=== PATIENT | female | born 1965 | race Caucasian/White ===

== ENCOUNTER 2021-05-30 09:56 | Emergency (ER) | payer SELFPAY ==
[2021-05-30 09:59] VITALS: BP 121/79; PULSE 57; RESP 14; TEMP 36.3; O2SAT 94; BMI 37.4
--- NOTE | 2021-05-30 10:23 | W.ED.DIZZY ---
Documented by User: KARLY Martinez 05/30/21 14:04 HPI - Dizziness General: Chief Complaint: General Medical Stated Complaint: N/V; DIZZY Time Seen by Provider: 05/30/21 09:58 Source: patient and EMS Mode of arrival: EMS Limitations: no limitations History of Present Illness: HPI Narrative: Patient is a 55-year-old female who presents via EMS for complaints of dizziness that began this morning when she awoke from sleep. Patient tells me yesterday she felt normal. She states dizziness was immediately noticed when she woke up and describes it as the room spinning-worsening with movement. She states she had difficulty ambulating in her house but states there were no issues with tipping over to one side . She states she was drinking her coffee and began having some lightheadedness and blurry vision. She then became very nauseous and has had 3 episodes of emesis. Patient was given Compazine in route and states this helped her nausea and vomiting. Patient has no history of vertigo. She is not complaining of hearing loss, tinnitus, or ear pain. She denies numbness, tingling, weakness to her extremities. Denies clumsiness/incoordination. No slurred speech or facial droop. Denies headache. MD elicited complaint: dizziness Onset (ago): hour(s) Timing: awoke with symptoms Severity: moderate Description: sense of movement, off-balance and difficulty walking History of similar symptoms: No Exacerbating factors: movement/ambulation, change in body position and keeping eyes open Relieving factors: remaining still Associated symptoms: Reports no associated symptoms, nausea and vomiting; Denies change in hearing, chest pain, chills, ear discharge, headache(s), malaise, nasal congestion, palpitations, syncope or tinnitus Associated neuro symptoms: Reports no associated symptoms; Deny confusion or numbness in extremities Review of Systems Const: Denies: fever(s), chills, body aches, fatigue or malaise Eyes: Reports: blurry vision; Denies: photophobia, floaters or seeing flashes ENMT: Denies: throat pain, odynophagia, ear or mastoid pain, ear discharge, change in hearing, tinnitus, nasal discharge, nasal congestion or epistaxis Card: Reports: lightheadedness; Denies: chest pain, palpitations, irregular heart rhythm, edema, swelling of feet/ankles, syncope, pre-syncope, dyspnea on exertion, orthopnea or leg pain with exertion Resp: Denies: dyspnea GI: Reports: nausea and vomiting; Denies: abdominal pain or diarrhea : Denies: flank pain or dysuria Musc: Denies: neck pain, back pain, extremity pain or joint pain Skin/Breast: Denies: rash Neuro: Reports: difficulty walking (secondary to dizziness) and dizziness; Denies: headache(s), numbness in extremities, weakness in extremities, sensory changes, lack of coordination, frequent falls, confusion, behavioral changes, Slurred speech present, difficulty communicating thoughts, seizure-like activity or involuntary movements Physical Exam Const: COMMON NORMALS: no acute distress, average body habitus, patient oriented x3, no limitations, healthy appearing, alert and well nourished GENERAL APPEARANCE: cooperative ORIENTATION/CONSCIOUSNESS: Yes awake, Yes oriented to person, Yes oriented to place and Yes oriented to time HENMT: COMMON NORMALS: normocephalic, atraumatic, hearing grossly normal bilaterally, external ears normal, EAC's normal and TM's normal bilaterally HEAD & SCALP: normal to inspection, normocephalic and atraumatic FACE & SINUS: normal facial exam EXTERNAL EAR: Yes external ears normal EXTERNAL AUDITORY CANAL: EAC's normal TYMPANIC MEMBRANE: TM's normal bilaterally Eye: COMMON NORMALS: Equal, round and reactive pupils present and EOMs intact bilaterally GENERAL EYE: appearance normal, both eyes and all related structures VISUAL ACUITY: Yes acuity normal PUPIL: Yes Equal, round and reactive pupils present OTHER: no nystagmus noted Resp: COMMON NORMALS: normal respiratory effort and clear to auscultation bilaterally AUSCULTATION: clear to auscultation bilaterally Cardio: COMMON NORMALS: regular rate and regular rhythm RATE: regular rate RHYTHM: regular rhythm Extremity: COMMON NORMALS: no pedal edema Neuro: ELOISE COMA SCALE: document GCS findings [place] coma scale eye opening: Spontaneous Eloise coma scale verbal response: Orientated Eloise coma scale motor response: Obey commands [place] coma scale total score: 15 COMMON NORMALS: patient oriented x3, CN's II-XII intact bilaterally, moves all extremities, no focal motor deficits and no sensory deficits noted SENSORIUM/ORIENTATION: Yes alert, Yes oriented to person, Yes oriented to place and Yes oriented to time SPEECH: speech normal Skin: COMMON NORMALS: no rashes or lesions noted GENERAL SKIN EXAM: no rashes or lesions noted Course Reevaluation(s): Reevaluation #1: Patient was able to ambulate up and down ED halls w/o dizziness or any issues with instability. She tells me her dizziness has almost completely subsided as well as her nausea/vomiting. Vital Signs: Vital signs: Vital Signs Temperature 97.4 F L 05/30/21 09:59 Pulse Rate 57 L 05/30/21 09:59 Respiratory Rate 14 05/30/21 09:59 Blood Pressure 121/79 05/30/21 09:59 Pulse Oximetry 94 05/30/21 09:59 MDM - Dizziness MDM Narrative: Medical decision making narrative: Patient is a 55-year-old female here for dizziness that began after she awoke from sleep this morning. She describes her dizziness as the room spinning but states she did have an episode of lightheadedness when she was drinking her coffee this morning. Patient was given fluids, meclizine and ativan here with almost complete relief of her symptoms. She was able to get up and walk around and that emergency department without assistance. During ambulation today she did not complain of dizziness or lightheadedness or pre-syncopal feelings. Patient takes no medications at home. She was noted at times throughout her visit to have bradycardia. EKG showed sinus bradycardia at a rate of 45. She has no known history of bradycardia. Every time I was in the room and conversing with her heart rate would increase into the 60s-70s but would go back into the 40s-50s with rest. Patient does not have any other symptoms to suggest a central etiology to her vertigo. The fact that it responded to meclizine/ativan and the fact that she was able to ambulate here w/o symptoms makes her bradycardia/reduced cardiac output the unlikely culprit. She has not noticed fatigue or exercise intolerance at home. Case was discussed with Dr. Sánchez who feels patient is stable for discharge with strict follow-up with PCP. Return to ED precautions given. Lab Data: Labs: Lab Results 05/30/21 05/30/21 05/30/21 Range/Units 10:20 10:20 12:05 WBC 10.9 H (4.0-10.0) 10^3/ uL RBC 4.64 (4.1-5.3) 10^6/u L Hgb 14.5 (11.5-15.3) g/dL Hct 45.6 (37.0-47.0) % MCV 98.3 (81-99) fl MCH 31.3 (28.0-34.0) pg MCHC 31.8 (30.0-36.0) g/dL RDW 13.2 (12.1-15.1) % Plt Count 161 (130-400) 10^3/c mm MPV 10.6 H (7.4-10.4) fL Neut % (Auto) 80.8 % Lymph % (Auto) 13.2 % [place] % (Auto) 4.0 % Eos % (Auto) 1.2 % Baso % (Auto) 0.5 % Neut # (Auto) 8.80 H (1.8-7.7) 10^3/u L Lymph # (Auto) 1.4 (0.8-4.8) 10^3/u L [place] # (Auto) 0.4 (0.2-0.9) 10^3/u L Eos # (Auto) 0.1 (0.0-0.8) 10^3/u L Baso # (Auto) 0.1 (0.0-0.1) 10^3/u L Nucleated RBC % (a uto) 0 % Nucleated RBCs # 0.0 /100WBC Sodium 143 (136-145) mmol/L Potassium 4.0 (3.5-5.1) mmol/L Chloride 108 H (98-107) mmol/L Carbon Dioxide 28 (22-29) mmol/L Anion Gap 11.0 (5-19) BUN 14 (6-20) mg/dL Creatinine 0.7 (0.5-0.9) mg/dL GFR Calculation 86.6 L (90-130) mL/min Glucose 107 (65-115) mg/dL Calculated Osmolal ity 297 H (285-295) mOsm/k g Calcium 8.6 (8.5-10.5) mg/dL Total Bilirubin 0.3 (0.15-1.2) mg/dL AST 13 (0-32) U/L ALT 13 (0-33) U/L Alkaline Phosphata se 99 (35-105) IU/L Total Protein 5.8 L (6.6-8.7) g/dL Albumin 3.7 (3.5-5.2) g/dL Globulin 2.1 (1.3-4.6) g/dL Lipase 27 (13-60) U/L Urine Color Yellow (Yellow) Urine Appearance Clear (CLEAR) Urine pH 5 (5-7) Ur Specific Gravit y 1.010 (1.005-1.030) Urine Protein Neg (Negative) Urine Glucose (UA) Norm (Normal) Urine Ketones Negative (Negative) Urine Blood Neg (Negative) Urine Nitrate Negative (Negative) Urine Bilirubin Neg (Negative) Urine Urobilinogen Norm (Negative) mg/dL Ur Leukocyte Holly ase Negative (Negative) Imaging Data^: CT Head: Radiologist's impression: [facility] [id number] Scan ReportSigned Patient: Inge Solitario #: [id number]: 1965Acct#:[id number]/Sex: 55 / FADM Date: 05/30/21Loc: ERRoom/Bed:Attending Dr: Ordering Provider/Ordering MD: Francheska Zayas Date of Service: 05/30/21 Procedure(s): CT head wo con* [id number] Accession Number(s): [id number] Report Number: [id number] PROCEDURE INFORMATION: Exam: CT Head Without Contrast Exam date and time: 05/30/2021 10:22 AM Age: 55 years old Clinical indication: Dizziness TECHNIQUE: Imaging protocol: Computed tomography of the head without contrast. Radiation optimization: All CT scans at this facility use at least one of these dose optimization techniques: automated exposure control; mA and/or kV adjustment per patient size (includes targeted exams where dose is matched to clinical indication); or iterative reconstruction. COMPARISON: No relevant prior studies available. RADIATION DOSE METRICS: Total DLP (mGy-cm): 553.72 FINDINGS: Brain: Normal. No hemorrhage. Unremarkable white matter. No mass effect. Ventricles: No hydrocephalus or evidence of increased intracranial pressure. Paranasal sinuses: Visualized sinuses are unremarkable. No fluid levels. Mastoid air cells: Visualized mastoid air cells are well aerated. Bones/joints: No acute abnormality. No acute fracture. Soft tissues: Unremarkable. CT/CT head wo con* [id number] IMPRESSION: No acute intracranial abnormality identified. Radiation Dose CTDIVOL = (mGy): DLP = 553.72 (mGy-cm) Dictated By:Olivier May MDSigned By:Olivier May MDSigned Date/Time:05/30/21 1149DD/ 1148 EKG Data^: EKG 1: EKG interpretation date: 05/30/21 EKG interpretation time: 13:05 Interpretation: Sinus bradycardia Rate [address] elevation or depression changes noted Also reviewed with Dr. Sánchez Discharge Plan Discharge Patient Disposition: Home Clinical Impression: Dizziness, Bradycardia Condition: Stable Prescriptions: New meclizine 25 mg tablet 25 mg PO TID PRN (Reason: dizziness) Qty: 20 RF: 0 Discharge Orders: Discharge ED (Routine); Ordered 05/30/21 Ordered By: Francheska Zayas Patient Instructions: Dizziness (ED) Activity Restrictions/Additional Instructions: As we discussed I want you to follow-up with your primary care provider as soon as possible for re-evaluation of the dizziness. There were times during your evaluation where your heart rate was low (a condition we call bradycardia). Because your symptoms improved with oral meclizine/ativan and because you were able to ambulate around the ED without any symptoms of lightheadedness/dizziness we don't feel at this time that your symptoms are related to this however I would still like you to follow-up with primary care. You need to return to the emergency department immediately for severe dizziness, lightheadedness, passing out episodes, visual changes, trouble walking repetitive episodes of vomiting, or any other concerns you may have. Stand Alone Forms: Work/School Release Coding Level of Care Code ED Cast Iron Drain Pipe Layer for Chg Fwd Exam Comprehensive Documented by User: Rodolfo Sánchez MD 05/31/21 19:23 HPI - Dizziness General: Chief Complaint: General Medical Stated Complaint: N/V; DIZZY Time Seen by Provider: 05/30/21 09:58 Course Vital Signs: Vital signs: Vital Signs Temperature 97.4 F L 05/30/21 09:59 Pulse Rate 57 L 05/30/21 09:59 Respiratory Rate 14 05/30/21 09:59 Blood Pressure 121/79 05/30/21 09:59 Pulse Oximetry 94 05/30/21 09:59 MDM - Dizziness MDM Narrative: Medical decision making narrative: I discussed this case with KARLY Martinez and have reviewed documentation. Rodolfo Sánchez MD Emergency Medicine Lab Data: Labs: Lab Results 05/30/21 05/30/21 05/30/21 Range/Units 10:20 10:20 12:05 WBC 10.9 H (4.0-10.0) 10^3/ uL RBC 4.64 (4.1-5.3) 10^6/u L Hgb 14.5 (11.5-15.3) g/dL Hct 45.6 (37.0-47.0) % MCV 98.3 (81-99) fl MCH 31.3 (28.0-34.0) pg MCHC 31.8 (30.0-36.0) g/dL RDW 13.2 (12.1-15.1) % Plt Count 161 (130-400) 10^3/c mm MPV 10.6 H (7.4-10.4) fL Neut % (Auto) 80.8 % Lymph % (Auto) 13.2 % [place] % (Auto) 4.0 % Eos % (Auto) 1.2 % Baso % (Auto) 0.5 % Neut # (Auto) 8.80 H (1.8-7.7) 10^3/u L Lymph # (Auto) 1.4 (0.8-4.8) 10^3/u L [place] # (Auto) 0.4 (0.2-0.9) 10^3/u L Eos # (Auto) 0.1 (0.0-0.8) 10^3/u L Baso # (Auto) 0.1 (0.0-0.1) 10^3/u L Nucleated RBC % (a uto) 0 % Nucleated RBCs # 0.0 /100WBC Sodium 143 (136-145) mmol/L Potassium 4.0 (3.5-5.1) mmol/L Chloride 108 H (98-107) mmol/L Carbon Dioxide 28 (22-29) mmol/L Anion Gap 11.0 (5-19) BUN 14 (6-20) mg/dL Creatinine 0.7 (0.5-0.9) mg/dL GFR Calculation 86.6 L (90-130) mL/min Glucose 107 (65-115) mg/dL Calculated Osmolal ity 297 H (285-295) mOsm/k g Calcium 8.6 (8.5-10.5) mg/dL Total Bilirubin 0.3 (0.15-1.2) mg/dL AST 13 (0-32) U/L ALT 13 (0-33) U/L Alkaline Phosphata se 99 (35-105) IU/L Total Protein 5.8 L (6.6-8.7) g/dL Albumin 3.7 (3.5-5.2) g/dL Globulin 2.1 (1.3-4.6) g/dL Lipase 27 (13-60) U/L Urine Color Yellow (Yellow) Urine Appearance Clear (CLEAR) Urine pH 5 (5-7) Ur Specific Gravit y 1.010 (1.005-1.030) Urine Protein Neg (Negative) Urine Glucose (UA) Norm (Normal) Urine Ketones Negative (Negative) Urine Blood Neg (Negative) Urine Nitrate Negative (Negative) Urine Bilirubin Neg (Negative) Urine Urobilinogen Norm (Negative) mg/dL Ur Leukocyte Holly ase Negative (Negative) Discharge Plan Discharge Patient Disposition: Home Clinical Impression: Dizziness, Bradycardia Condition: Stable Prescriptions: New meclizine 25 mg tablet 25 mg PO TID PRN (Reason: dizziness) Qty: 20 RF: 0 Discharge Orders: Discharge ED (Routine); Ordered 05/30/21 Ordered By: Francheska Zayas Patient Instructions: Dizziness (ED) Activity Restrictions/Additional Instructions: As we discussed I want you to follow-up with your primary care provider as soon as possible for re-evaluation of the dizziness. There were times during your evaluation where your heart rate was low (a condition we call bradycardia). Because your symptoms improved with oral meclizine/ativan and because you were able to ambulate around the ED without any symptoms of lightheadedness/dizziness we don't feel at this time that your symptoms are related to this however I would still like you to follow-up with primary care. You need to return to the emergency department immediately for severe dizziness, lightheadedness, passing out episodes, visual changes, trouble walking repetitive episodes of vomiting, or any other concerns you may have. Stand Alone Forms: Work/School Release Coding Level of Care Code ED Cast Iron Drain Pipe Layer for Mukund Fwaidee Exam Comprehensive
[2021-05-30 10:35] LABS: Basophils # 0.1 10^3/uL (0.0-0.1); Basophils % 0.5 %; Eosinophils # 0.1 10^3/uL (0.0-0.8); Eosinophils % 1.2 %; Hematocrit 45.6 % (37.0-47.0); Hemoglobin 14.5 g/dL (11.5-15.3); Lymphocytes # 1.4 10^3/uL (0.8-4.8); Lymphocytes % 13.2 %; Mean Corpuscular HGB Conc 31.8 g/dL (30.0-36.0); Mean Corpuscular Hemoglobin 31.3 pg (28.0-34.0); Mean Corpuscular Volume 98.3 fl (81-99); Mean Platelet Volume 10.6 fL (7.4-10.4); Monocytes # 0.4 10^3/uL (0.2-0.9); Neutrophils % 80.8 %; Nucleated Red Blood Cells % 0 %; Platelet Count 161 10^3/cmm (130-400); Red Blood Count 4.64 10^6/uL (4.1-5.3); Red Cell Distribution Width 13.2 % (12.1-15.1); White Blood Count 10.9 10^3/uL (4.0-10.0)
[2021-05-30 11:22] LABS: Alanine Aminotransferase 13 U/L (0-33); Albumin Level 3.7 g/dL (3.5-5.2); Alkaline Phosphatase 99 IU/L (35-105); Aspartate Amino Transferase 13 U/L (0-32); Blood Urea Nitrogen 14 mg/dL (6-20); Calcium 8.6 mg/dL (8.5-10.5); Carbon Dioxide 28 mmol/L (22-29); Chloride 108 mmol/L (98-107); Globulin 2.1 g/dL (1.3-4.6); Glomerular Filtration Rate 86.6 mL/min (90-130); Glucose 107 mg/dL (65-115); Lipase 27 U/L (13-60); Osmolality Calculated 297 mOsm/kg (285-295); Sodium 143 mmol/L (136-145); Total Bilirubin 0.3 mg/dL (0.15-1.2); Total Protein 5.8 g/dL (6.6-8.7)
[2021-05-30] MEDS: meclizine 25 mg tablet 50 MG PO (11:23)
[2021-05-30] MEDS: LORazepam 2 mg/mL INJ 1 mL 0.5 MG IVP (12:35)
--- NOTE | 2021-05-30 12:48 | ECG_ITS ---
[facility] Test Date: 2021-05-30 Pat Name: nIge Solitario Department: Room: Gender: Female Film Inspector: : 1965 Requested By: Francheska Zayas Order Number: [id number] Shila MD: Hillary Quintanilla M.D. Measurements Intervals [place] Rate: 45 P: 79 DC: 121 QRS: 67 QRSD: 98 T: 58 QT: 467 QTc: 407 Interpretive Statements SINUS BRADYCARDIA NONSPECIFIC T-WAVE ABNORMALITY No previous ECG available for comparison Electronically Signed On 05-31-2021 13:26:55 CDT by Hillary Quintanilla M.D. [email or web address]
[2021-05-30 12:49] LABS: Add Urine Microscopic? NO; Charge for UA Resulting for Rev
[2021-05-30 13:03] LABS: Bilirubin Urine Neg (Negative); Blood Urine Neg (Negative); Glucose Urine UA Norm (Normal); Ketones Urine Negative (Negative); Leukocyte Esterase Urine Negative (Negative); Nitrate Urine Negative (Negative); Protein Urine Neg (Negative); Urine Appearance Clear (CLEAR); Urine Color Yellow (Yellow); Urobilinogen Urine Norm (Negative); pH Urine 5 (5-7)
== END 2021-05-30 16:29 | disposition home or self-care (01) ==
PROVIDERS: Emergency Provider Physician Assistant
DX: R42 Dizziness and giddiness (principal); R00.1 Bradycardia, unspecified
CPT/HCPCS: 70450; 80053; 81003; 83690; 85025; 93005; 96374; 99283; J2060; J8597

== ENCOUNTER 2021-07-21 09:30 | Outpatient (CLI) | payer SELFPAY | END 2021-07-21 09:31 | disposition home or self-care (01) | LOC: WOUND 09:31 | PROVIDERS: Visit Provider Thoracic Surgery (Cardiothoracic Vascular Surgery) | DX: T24.202A Burn of second degree of unspecified site of left lower limb, except ankle and foot, initial encounter (principal); X12.XXXA Contact with other hot fluids, initial encounter; F17.210 Nicotine dependence, cigarettes, uncomplicated | CPT/HCPCS: 97597; 97598; 99213; G0463 ==

== ENCOUNTER 2021-07-28 10:36 | Outpatient (CLI) | payer SELFPAY | END 2021-07-28 10:37 | disposition home or self-care (01) | LOC: WOUND 10:37 | PROVIDERS: Visit Provider Nurse Practitioner Family | DX: T24.202A Burn of second degree of unspecified site of left lower limb, except ankle and foot, initial encounter (principal); X12.XXXA Contact with other hot fluids, initial encounter; F17.210 Nicotine dependence, cigarettes, uncomplicated | CPT/HCPCS: 11042; 11045 ==

== ENCOUNTER 2021-08-04 10:50 | Outpatient (CLI) | payer SELFPAY | END 2021-08-04 10:51 | disposition home or self-care (01) | LOC: WOUND 10:52 | PROVIDERS: Visit Provider Thoracic Surgery (Cardiothoracic Vascular Surgery) | DX: L97.822 Non-pressure chronic ulcer of other part of left lower leg with fat layer exposed (principal); F17.210 Nicotine dependence, cigarettes, uncomplicated | CPT/HCPCS: 97597; 97598 ==

== ENCOUNTER 2021-08-11 09:52 | Outpatient (CLI) | payer SELFPAY | END 2021-08-11 09:53 | disposition home or self-care (01) | LOC: WOUND 09:52 | PROVIDERS: Visit Provider Thoracic Surgery (Cardiothoracic Vascular Surgery) | DX: L97.822 Non-pressure chronic ulcer of other part of left lower leg with fat layer exposed (principal); F17.210 Nicotine dependence, cigarettes, uncomplicated | CPT/HCPCS: 97597; 97598 ==

== ENCOUNTER 2021-08-18 08:50 | Outpatient (CLI) | payer SELFPAY | END 2021-08-18 08:51 | disposition home or self-care (01) | LOC: WOUND 08:50 | PROVIDERS: Visit Provider Thoracic Surgery (Cardiothoracic Vascular Surgery) | DX: L97.822 Non-pressure chronic ulcer of other part of left lower leg with fat layer exposed (principal); F17.210 Nicotine dependence, cigarettes, uncomplicated | CPT/HCPCS: 11042; 11045 ==

== ENCOUNTER 2021-08-25 09:16 | Outpatient (CLI) | payer SELFPAY | END 2021-08-25 09:17 | disposition home or self-care (01) | LOC: WOUND 09:17 | PROVIDERS: Visit Provider Nurse Practitioner Family | DX: X12.XXXA Contact with other hot fluids, initial encounter; F17.210 Nicotine dependence, cigarettes, uncomplicated; I96 Gangrene, not elsewhere classified; T24.202A Burn of second degree of unspecified site of left lower limb, except ankle and foot, initial encounter | CPT/HCPCS: 11042; 11045 ==

== ENCOUNTER 2021-09-08 09:00 | Outpatient (CLI) | payer SELFPAY | END 2021-09-08 09:01 | disposition home or self-care (01) | LOC: WOUND 09:01 | PROVIDERS: Visit Provider Nurse Practitioner Family | DX: Z09 Encounter for follow-up examination after completed treatment for conditions other than malignant neoplasm (principal); F17.210 Nicotine dependence, cigarettes, uncomplicated | CPT/HCPCS: 99212 ==